=== PATIENT | female | born 1975 | race Caucasian/White ===

== ENCOUNTER 2016-10-31 18:15 | Emergency (ER) | payer OTHER ==
[~2016-10-31] VITALS: Ht 162.6 cm; Wt 108.5 kg
[2016-10-31 18:28] VITALS: Ht 162.6 cm; Wt 108.5 kg
[2016-10-31] MEDS ORDERED: ONDANSETRON (ODT) 4 MG TAB ODT STA (18:42)
[2016-10-31] MEDS ORDERED: HYDROCODONE/APAP (10/325) TAB PO ONE (19:00)
[2016-10-31 19:04] LABS: ADD SCAN DIFF NO
[2016-10-31 19:07] LABS: BASOPHILS % 0.4 % (0.0-2.0); EOSINOPHILS # 0.2 10^3/ul (0.0-0.5); EOSINOPHILS % 1.7 % (0.0-7.0); HEMATOCRIT 40.4 % (37.0-47.0); HEMOGLOBIN 13.6 g/dl (12.0-16.0); LYMPHOCYTES # 3.2 10^3/ul (0.8-2.9); LYMPHOCYTES % 34.6 % (15.0-51.0); MEAN CORPUSCULAR HEMOGLOBIN 29.9 pg (29.0-33.0); MEAN CORPUSCULAR HGB CONC 33.7 g/dl (32.0-37.0); MEAN CORPUSCULAR VOLUME 88.8 fl (82.0-101.0); MEAN PLATELET VOLUME 9.2 fl (7.4-10.4); MONOCYTE # 0.5 10^3/ul (0.3-0.9); MONOCYTES % 5.3 % (0.0-11.0); NEUTROPHIL # 5.4 10^3/ul (1.6-7.5); NEUTROPHILS % 57.8 % (39.0-77.0); PLATELET COUNT 356 10^3/UL (140-415); RED BLOOD COUNT 4.55 10^6/ul (4.20-5.40); RED CELL DISTRIBUTION WIDTH 13.3 % (11.5-14.5); WHITE BLOOD COUNT 9.4 10^3/ul (4.8-10.8)
[2016-10-31 19:21] LABS: ADD UMIC NO; URINE BILIRUBIN (Dip) NEGATIVE (NEGATIVE); URINE BLOOD (Dip) NEGATIVE (NEGATIVE); URINE COLOR YELLOW (YELLOW); URINE GLUCOSE (Dip) NEGATIVE (NEGATIVE); URINE KETONES (Dip) NEGATIVE (NEGATIVE); URINE LEUKOCYTE ESTERASE (Dip) NEGATIVE (NEGATIVE); URINE NITRITE (Dip) NEGATIVE (NEGATIVE); URINE TOTAL PROTEIN (Dip) NEGATIVE (NEGATIVE); URINE UROBILINOGEN (Dip) 0.2 E.U./dL (0.1-1.0)
[2016-10-31 19:36] LABS: ALBUMIN 5.1 g/dl (3.3-4.9); ALBUMIN/GLOBULIN RATIO 1.59; BILIRUBIN,INDIRECT 0.5 mg/dl (0-1.1); BILIRUBIN,TOTAL 0.5 mg/dl (0.2-1.3); CALCIUM 9.8 mg/dl (8.4-10.2); CREATININE 0.88 mg/dl (0.44-1.00); POTASSIUM 4.2 mmol/L (3.5-5.1); TOTAL PROTEIN 8.3 g/dl (6.1-8.1)
--- NOTE | 2016-10-31 20:27 | ERD ---
ER Documentation Chief Complaint Date/Time DATE: 10/31/16 TIME: 20:25 Chief Complaint mid abd pain x 3 days HPI Patient is a 41-year-old female with hernia who presents with abdominal pain. The patient had sudden onset of abdominal pain in the midepigastric area. She describes it as a burning type pain. The patient said that it started 1 hour ago and is still there. She says "I think it might be another hernia". She has had no treatment as of yet. She does not know the name of her primary doctor. ROS All systems reviewed and are negative except as per history of present illness. Medications Home Meds No Active Prescriptions or Reported Meds Allergies Allergies: Coded Allergies: No Known Allergy (Verified , 06/03/14) PMhx/Soc Medical and Surgical Hx: pt denies Surgical Hx Hx Miscellaneous Medical Probl: Yes (hernia 2016) Hx Alcohol Use: No Hx Substance Use: No Hx Tobacco Use: No Smoking Status: Never smoker FmHx Family History: No diabetes Physical Exam Vitals Vital Signs Date Time Temp Pulse Resp B/P Pulse Ox O2 Delivery O2 Flow Rate FiO2 10/31/16 18:28 98.8 102 20 134/86 98 Physical Exam Const: Moderate distress secondary to pain Head: Atraumatic Eyes: Normal Conjunctiva ENT: Normal External Ears, Nose and Mouth. Neck: Full range of motion..~ No meningismus. Resp: Clear to auscultation bilaterally Cardio: Regular rate and rhythm, no murmurs Abd: Soft, periumbilical and left upper quadrant tenderness to palpation without rebound or guarding, no obvious hernia palpated Skin: No petechiae or rashes Back: No midline or flank tenderness Ext: No cyanosis, or edema Neur: Awake and alert Psych: Normal Mood and Affect Result Diagram: 10/31/16184910/31/161849 Results 24 hrs Laboratory Tests Test 10/31/16 18:50 10/31/16 18:54 White Blood Count 9.410^3/ul Red Blood Count 4.5510^6/ul Hemoglobin 13.6g/dl Hematocrit 40.4% Mean Corpuscular Volume 88.8fl Mean Corpuscular Hemoglobin 29.9pg Mean Corpuscular Hemoglobin Concent 33.7g/dl Red Cell Distribution Width 13.3% Platelet Count 24362^3/UL Mean Platelet Volume 9.2fl Neutrophils % 57.8% Lymphocytes % 34.6% Monocytes % 5.3% Eosinophils % 1.7% Basophils % 0.4% Nucleated Red Blood Cells % 0.0/100WBC Neutrophils # 5.410^3/ul Lymphocytes # 3.210^3/ul Monocytes # 0.510^3/ul Eosinophils # 0.210^3/ul Basophils # 0.010^3/ul Nucleated Red Blood Cells # 0.010^3/ul Sodium Level 145mmol/L Potassium Level 4.2mmol/L Chloride Level 105mmol/L Carbon Dioxide Level 30mmol/L Anion Gap 14 Blood Urea Nitrogen 11mg/dl Creatinine 0.88mg/dl Glucose Level 112mg/dl Calcium Level 9.8mg/dl Total Bilirubin 0.5mg/dl Direct Bilirubin 0.00mg/dl Indirect Bilirubin 0.5mg/dl Aspartate Amino Transf (AST/SGOT) 28IU/L Alanine Aminotransferase (ALT/SGPT) 35IU/L Alkaline Phosphatase 94IU/L Total Protein 8.3g/dl Albumin 5.1g/dl Globulin 3.20g/dl Albumin/Globulin Ratio 1.59 Lipase 69U/L Urine Color YELLOW Urine Clarity CLEAR Urine pH 5.5 Urine Specific [place] >=1.030 Urine Ketones NEGATIVE Urine Nitrite NEGATIVE Urine Bilirubin NEGATIVE Urine Urobilinogen 0.2 E.U./dL Urine Leukocyte Esterase NEGATIVE Urine Hemoglobin NEGATIVE Urine Glucose NEGATIVE% Urine Total Protein NEGATIVE Current Medications Medications (Trade) Dose Ordered Sig/Victoriano Route PRN Reason Start Time Stop Time Status Last Admin Dose Admin Acetaminophen/ Hydrocodone Bitart (Given (10/325)) 1 tab ONCE ONCE PO 10/31/16 19:00 10/31/16 19:01 DC 10/31/16 18:59 Ondansetron HCl (Zofran Odt) 4 mg ONCE STAT ODT 10/31/16 18:42 10/31/16 18:43 DC 10/31/16 18:59 Procedures/MDM CT scan pending radiology read at this time. Patient is a 41-year-old female with previous hernia presents with abdominal pain. She feels like she may have another hernia. Laboratory studies are basically normal. CT scan was done and is pending radiology read at this time. The patient was given Given and Zofran for symptomatic relief. If her CT scan shows no surgical process she will be stable for outpatient management to follow-up with a primary doctor within 24 hours. She could return for any worsening symptoms. At this point I doubt appendicitis, pancreatitis, or cholecystitis. CT scan will be able to show if there is a hernia or bowel obstruction. Departure Diagnosis: Primary Impression: Abdominal pain Abdominal location: unspecified location Qualified Code: R10.9 - Abdominal pain, unspecified location Condition: JANE Lyles MD Oct 31, 2016 20:27
[2016-10-31] MEDS ORDERED: ONDA4TAB14 PO (20:29)
[2016-10-31] MEDS ORDERED: HYDR-902 PO (20:29)
--- NOTE | 2016-10-31 20:54 | RADRPT ---
PROCEDURE: CT abdomen and pelvis without intravenous contrast. CLINICAL INDICATION: Pain. TECHNIQUE: CT of the abdomen/pelvis was performed utilizing axial images with reconstructions in s agittal and coronal planes. The administered radiation dose is CTDI 17 mGy, DLP 945 mGy-cm. COMPARISON: No pertinent prior examinations were submitted for comparison. FINDINGS: Visualized Chest: The visualized lung bases are clear. Abdomen: The spleen, pancreas, gallbladder,and adrenal glands are unremarkable. The liver is diffusely dec reased in attenuation, compatible with hepatic steatosis. The kidneys are without hydronephrosis. There is a punctate nonobstructive calculus at the lower veronica e of the right kidney. There is no evidence of bowel obstruction. The appendix is normal. No intra-abdominal free air is seen. There is no evidence of intra-abdominal adenopathy or free fluid. Pelvis: There is no evidence of pelvic adenopathy. The uterus and ovaries are without enlargement. The uri nary bladder is unremarkable. There is no pelvic free fluid. Osseous structures: Unremarkable. IMPRESSION: No acute findings. Hepatic steatosis. Right nephrolithiasis. RPTAT: HIKT .Margarito Pate MD, Date Time Electronically viewed and signed by .Margarito Pate MD, on 10/31/2016 20:54 .T/
== END 2016-10-31 21:10 | disposition home or self-care (01) ==
LOC: FTE 18:15
DX: R10.33 Periumbilical pain (principal); R10.12 Left upper quadrant pain; R10.2 Pelvic and perineal pain
CPT/HCPCS: 74176; 80053; 81003; 83690; 85025; Z7610; 36415